=== PATIENT | female | born 1995 | race American Indian/Alaskan Native ===

== ENCOUNTER 2017-05-17 16:18 | Emergency (ER) | payer MEDICAID ==
[2017-05-17 18:02] VITALS: BP 114/58
== END 2017-05-18 04:22 | disposition left against medical advice (07) ==
LOC: ED 16:18
DX: K08.89 Other specified disorders of teeth and supporting structures (principal); Z53.21 Procedure and treatment not carried out due to patient leaving prior to being seen by health care provider